=== PATIENT | male | born 1955 | race Caucasian/White ===

== ENCOUNTER 2019-12-02 21:34 | Inpatient (IN) | payer OTHER ==
[~2019-12-02] VITALS: Ht 170.2 cm; Wt 99.3 kg
--- NOTE | 2019-12-02 21:35 | NUR ---
PATIENTS AND DAUGHTER ARRIVED AND PATIENT AGREES TO RELEASE INFORMATION TO PATIENTS AND DAUGHTER.
[2019-12-02 21:36] VITALS: BP 163/90
[2019-12-02] MEDS ORDERED: NORVASC 2.5 MG2.5 M1 PO (21:56)
[2019-12-02] MEDS ORDERED: VITAMIN D22000 UNIT PO (21:56)
[2019-12-02] MEDS ORDERED: PREDNISONE 5 MG5 M1 PO (21:57)
[2019-12-02] MEDS ORDERED: PLAQUENIL200 MG PO (21:57)
[2019-12-02] MEDS ORDERED: FOLIC ACID1 MG PO (21:57)
[2019-12-02] MEDS ORDERED: METHOTREXATE 22.5 M1 PO (21:58)
[2019-12-02 22:05] LABS: ABSOLUTE BASOPHILS 0.1 thou/uL (0.0-0.2); ABSOLUTE EOSINOPHILS 0.4 thou/uL (0.0-0.7); ABSOLUTE LYMPHOCYTES 4.6 thou/uL (0.8-5.3); EOSINOPHILS 2.7 %; HEMATOCRIT 45.3 % (42.0-52.0); LYMPHOCYTES 30.3 %; MCH 32.4 pg (26.0-34.0); MCHC 33.2 g/dL (28.0-37.0); MCV 97.6 fL (80.0-100.0); MONOCYTES 6.7 %; MPV 8.8 fl. (7.2-11.1); NUCLEATED RBCS 0 /100WBC; PLATELET COUNT* 410 thou/uL (150-400); POLYS 59.3 %; RBC 4.64 mil/uL (4.50-6.00); RDW-CV 17.6 % (10.5-14.5); WBC 15.1 thou/uL (4.0-11.0)
[2019-12-02 22:23] LABS: CALCIUM 8.2 mg/dL (8.5-10.1); CREATININE 1.1 mg/dL (0.6-1.3)
[2019-12-02 22:28] LABS: TOTAL BILIRUBIN 0.3 mg/dL (<0.1-1.0); TOTAL PROTEIN 6.7 g/dL (6.4-8.2)
[2019-12-02 22:54] LABS: APTT 30.1 Seconds (25.0-31.3); PROTIME 10.7 Seconds (9.20-11.50)
[2019-12-03] VITALS (7 sets, daily range): BP systolic 104–144; BP diastolic 66–84
[2019-12-03 01:23] LABS: URINE BILIRUBIN NEGATIVE (Negative); URINE BLOOD 1+ (Negative); URINE CLARITY CLEAR; URINE COLOR YELLOW; URINE GLUCOSE-RANDOM NEGATIVE (Negative); URINE KETONES NEGATIVE (Negative); URINE LEUKOCYTES NEGATIVE (Negative); URINE NITRITE NEGATIVE (Negative); URINE PROTEIN NEGATIVE (Negative); URINE SPECIFIC GRAVITY <= 1.005 (1.005-1.030); URINE UROBILINOGEN 0.2 E.U./dl (0.2-1.0)
[2019-12-03 01:34] LABS: CASTS None Seen /LPF (None Seen); SQUAMOUS NONE SEEN /LPF (0-3); URINE WBC None Seen /HPF (0-5)
[2019-12-03 01:35] LABS: BACTERIA None Seen /HPF (None Seen); CRYSTALS None Seen /LPF (None Seen); URINE RBC 3-10 Few /HPF (0-2)
--- NOTE | 2019-12-03 02:05 | NUR ---
PATIENT ARRIVED ON UNIT AT 0130. MILD COMPLAINTS OF PAIN IN CHEST. STATES THT IT IS MOSTLY GONE NOW. ONLINE MARKETER COMPLETED DOCUMENTED. ALERT AND ORIENTED TIMES FOUR. SLEEPS IN RECLINER PER REQUEST. WILL CONTINUE TO MONITOR.
[2019-12-03 11:54] LABS: CHOLESTEROL 182 mg/dL (<200); HDL CHOLESTEROL 34 mg/dL (>40); LDL CHOLESTEROL 136 mg/dL (<100); SERUM ASSESSMENT CLEAR; TC:HDL 5.4 Ratio (Not establshd); TRIGLYCERIDE 64 mg/dL (<150); VLDL 13 mg/dL (<40)
[2019-12-04] VITALS (23 sets, daily range): BP systolic 99–140; BP diastolic 64–88
[2019-12-04 05:18] LABS: CALCIUM 8.4 mg/dL (8.5-10.1); CREATININE 1.2 mg/dL (0.6-1.3); POTASSIUM 4.1 mmol/L (3.5-5.1)
--- NOTE | 2019-12-04 05:33 | NUR ---
ASSUMED PATIENT CARE AT 1900. PATIENT ALERT AND ORIENTED TIMES FOUR. EDUCATED PATIENT ABOUT MEDICATIONS. PATIENT VERBALIZED UNDERSTANDING OF MEDICATIONS AND PROCEDURE THAT IS TO BE PERFORMED TODAY. UP AD ORESTES. NO COMPLAINTS OF PAIN OR DISCOMFORT NOTED. STEAM DRIER TENDER AND HOURLY ROUNDING COMPLETED DOCUMENTED.
--- NOTE | 2019-12-04 10:38 | EKG ---
[place] [address] ELECTROCARDIOGRAM REPORT Name: BROWN DEL TORO Room: [address] ADM IN M.R.#: [id number] Admission: 12/02/19 Attend Phys: Nick Voss, Discharge: Date of : 51 Report #: [id number] THIS REPORT FOR: //name// [facility] ED Test Date: 2019-12-02 Test Time: 21:39:04 Pat Name: BROWN DEL TORO Department: Room: [facility] Gender: M Mule Operator: : 1955 Requested By: Pamela Aldana Order Number: [id number] MD: Karthik Meng Measurements Intervals [place] Rate: 104 P: 51 TX: 186 QRS: 21 QRSD: 102 T: 30 QT: 380 QTc: 500 Interpretive Statements Sinus tachycardia Borderline prolonged QT interval No previous ECG available for comparison Electronically Signed On 12-04-2019 10:37:24 BRAND PROTECTION MANAGER by Karthik Meng [email or web address] <ELECTRONICALLY SIGNED> By: Karthik Meng MD, [facility] 12/04/19 [facility] 2139 2139 Karthik Meng MD, FACC /EPI
--- NOTE | 2019-12-04 11:19 | NUR ---
assumed pt care report received from nurse pt is aox4 on ra. o2 saturation 93%. vss. pt is scheduled for a cardiac cath this am. consent signed. asa and breathing treatment given. iv fluid started as ordered. pt denies chest pain, n/v. pt left for cardiac cath at 0915 am accompanied by heart cath nurses. pt came back from cardiac cath at 1030 am. vss being monitored q 15 min, neuro assessment performed as well. right radial area has blood around the radsatdt bracelet. but pt is not bleeding diretly from the artery site. r radial area cleaned with water and tissue. ekg done at bedside per laser technician. see chart. gown changed. heart monitor on. sr on telemetry monitor. no complaint. po medicine given. snack offered. lunch ordered, awaiting. at 1115 am 2 cm of air removed from radstadt pressure device. will continue to pull air out q30 min. family at bedside. call light at reach. will continue to monitor pt.
--- NOTE | 2019-12-04 14:14 | EKG ---
[place] [address] ELECTROCARDIOGRAM REPORT Name: BROWN DEL TORO Room: [address] ADM IN M.R.#: [id number] Admission: 12/02/19 Attend Phys: Nick Voss, Discharge: Date of : 51 Report #: [id number] THIS REPORT FOR: //name// [facility] Test Date: 2019-12-03 Test Time: 06:02:25 Pat Name: BROWN DEL TORO Department: Room: [address] Gender: M Dental Ceramist: RAKESH : 1955 Requested By: Nick Voss Order Number: [id number] Raymundo MD: Karthik Meng Measurements Intervals [place] Rate: 94 P: 51 MD: 177 QRS: 4 QRSD: 95 T: 32 QT: 370 QTc: 463 Interpretive Statements Sinus rhythm Compared to ECG 12/02/2019 21:39:04 Sinus tachycardia no longer present Electronically Signed On 12-04-2019 14:13:30 STRUCTURAL BIOLOGIST by Karthik Meng [email or web address] <ELECTRONICALLY SIGNED> By: Karthik Meng MD, [facility] 12/04/19 1413 D: [id number] 1 Karthik Meng MD, FACC /EPI
--- NOTE | 2019-12-04 14:17 | EKG ---
[place] [address] ELECTROCARDIOGRAM REPORT Name: BROWN DEL TORO Room: [address] ADM IN M.R.#: [id number] Admission: 12/02/19 Attend Phys: Nick Voss, Discharge: Date of : 51 Report #: [id number] THIS REPORT FOR: //name// [facility] Test Date: 2019-12-04 Test Time: 10:42:33 Pat Name: BROWN DEL TORO Department: Room: [address] Gender: M Wash Oil Pump Operator Helper: [facility] : 1955 Requested By: Karthik Meng Order Number: [id number] Raymundo MD: Karthik Meng Measurements Intervals [place] Rate: 88 P: 53 MD: 211 QRS: 11 QRSD: 100 T: 28 QT: 403 QTc: 488 Interpretive Statements Sinus rhythm Borderline prolonged QT interval Electronically Signed On 12-04-2019 14:16:54 PUBLIC UTILITIES SALES REPRESENTATIVE by Karthik Meng [email or web address] <ELECTRONICALLY SIGNED> By: Karthik Meng MD, [facility] 12/04/19 1416 1042 1042 Karthik Meng MD, FACC /EPI
--- NOTE | 2019-12-04 15:07 | NUR ---
Pt is A&O. Pt and are currently residing at home with their dtr, they are on the waiting list for an apartment. Independent. Pt uses a cane PRN. No hx of HH or SNF. Goal is home at tn. No needs anticipated.
--- NOTE | 2019-12-04 16:04 | CARD ---
[address] [address] CARDIAC CATH REPORT Name: BROWN DEL TORO Room: [address] IN M.R.#: [id number] Admission: 12/02/19 Attend Phys: Nick Voss, Discharge: Date of : 53 Report #: [id number] THIS REPORT FOR: //name// APPROVED REPORT Study performed: 12/04/2019 08:22:19 Patient Details Patient Status: In-Patient Room #: The patient is a 64 year-old male Event Personnel Karthik Meng Vehicle Modification Technician, Tianna Martinez RN Electric Motor Tester Assembler, Bela Ambrocio RTR Monitor, Matthew Hurtado RTR Scrub Procedures Performed Art Access - R radial artery, Left Heart Cath w/or w/o Coronaries, BRETT Place w/wo Plasty Single OM, Hemostasis with Hemoband Indication Unstable angina Risk Factors Hypercholesterolemia, Hypertension, Tobacco History () Admission/Lab Medications/Medications given during procedure Glycoprotein IllbIlla Inhibitors, Heparin Unfract., Nitroglycerin IA 400 mcg, Verapamil IA 5 mg, Heparin IV 6000 units, Aggrastat IV 10 mcg per kg per min, Plavix PO 600 mg Procedure Narrative The patient was brought electively to the Cardiac Catheterization Laboratory and was prepped and draped in a sterile manner. The right wrist was infiltrated with 2% Lidocaine subcutaneous anesthesia. A 6F Slender [place] sheath was inserted into the right radial artery. Coronary angiography was performed using coronary diagnostic catheters. The right coronary system was accessed and visualized with a 6F JR4 catheter. The left coronary system was accessed and visualized with a 6F JL4 catheter. The left ventricle was accessed and visualized with a 6F Pigtail catheter. Left ventricular/Aortic Valve gradient assessed via catheter pullback. Left ventriculogram was performed in PARKER projection. Closure device was deployed with a [address] [place] [address] CARDIAC CATH REPORT Name: BROWN DEL TORO Room: [address] IN ..#: [id number] Admission: 12/02/19 Attend Phys: Nick Voss, Discharge: Date of : 51 Report #: [id number] Fr Vasc-Band Reg 24cm. The patient tolerated the procedure well and there were no complications associated with the procedure. There was no hematoma. Intraoperative Conscious Sedation Sedation start time: 09:18 Case end Time: 10:05 Versed 2 mg Fluoro Time: 7.6 minutes Dose: DAP 043484 cGycm2 1755 mGy Contrast Type and Amount: Visipaque 125 ml Coronary Angiography The patient's coronary anatomy is right dominant. Diagnostic Cath Left Main 0% stenosis LAD 60% proximal stenosis Circumflex distally occluded and filled by collaterals from the right coronary artery OM3 80% proximal stenosis Right Coronary 40% proximal stenosis R PDA 70% ostial stenosis RPLV 60% proximal stenosis Left Ventriculography The left ventricular ejection fraction is estimated to be 60-65%. Left ventricular wall motion abnormalities are not present. There is no mitral insufficiency. Hemodynamics The aortic pressure is 114/80 mmHg with a mean of 95 mmHg. The left ventricular pressure is 114/8 mmHg with a mean of mmHg. The left ventricular end diastolic pressure is 14 mmHg. There was no gradient across the aortic valve upon pullback. Pullback from the left ventricle to the aorta revealed no gradient across the aortic valve. PCI Technique Lesion Anticoagulation was achieved with Heparin. bolus of iv aggrastat given Percutaneous coronary intervention was performed on the third obtuse marginal branch segment. The lesion stenosis prior to intervention was 80% with JOYCE 3 flow. A 6FR XB 3.5 100CM Guide Catheter was used to engage the lm ostium. A BMW 190cm Interventional Guidewire was used [place] [address] CARDIAC CATH REPORT Name: BROWN DEL TORO Room: [address] IN [facility]#: [id number] Admission: 12/02/19 Attend Phys: Nick Voss, Discharge: Date of : 51 Report #: [id number] BALLOON DILATION A Balloon catheter Trek RX 2.5 X 8 was inserted and inflated up to 16atm for 14seconds. Repeat angiography revealed the following post-dilatation results: 40% stenosis. Additional Inflation: 16atm for 6seconds. Additional Inflation: 16atm for 9seconds. Attempted to place a second BMW wire into the distal circumflex, but was unable to advance the wire suggesting this was a chronic occlusion STENT DEPLOYMENT A drug-eluting stent Kenan RX Stent 3.0X15mm was inserted and inflated up to 8atm for 13seconds. Repeat angiography revealed the following post-stent deployment results: 0% stenosis. Additional Inflation: 8atm for 8seconds. Additional Inflation: 12atm for 19seconds. Final angiography reveals 0 % stenosis with JOYCE 3 flow. Conclusion 1. CAD manifested by a 60% stenosis of the proximal lad, and a 70% stenosis of the distal posterior descending branch of the RCA 2. 80% stenosis of the third marginal branch of the circumflex which was distally occluded and filled by collaterals. 3. LVEF 60-65% 4. successful placement of a drug eluting stent in the 3rd marginal branch Recommendations Smoking Cessation Medications Administered Clopidogrel <ELECTRONICALLY SIGNED> By: Karthik Meng MD, [facility] 12/04/19 1603 1603 1603Davivinny Meng MD, FACC /INF
--- NOTE | 2019-12-04 18:56 | NUR ---
PT RIGHT RADIAL BRACELET TAKEN OUR BY NURSE AFTR PULLING ALL THE 10 CC OF AIR OUT. 4BY4 GAUZE APPLIED ON SITE. NO BLEEDING NOTICED. PT WENT FOR A WALK TOWARDS THE END OF THE SHIFT.
[2019-12-05] VITALS (8 sets, daily range): BP systolic 118–134; BP diastolic 67–74
--- NOTE | 2019-12-05 05:48 | NUR ---
ASSUMED PATIENT CARE AT 1900. PATIENT ALERT AND ORIENTEDTIMESFOUR. UP AD ORESTES. NO COMPLAINTS OF PAIN OR DISCOMFORT. DRESSING OT RIGHT WRIST C/D/I. CLEANING ATTENDANT AND HOURLY ROUNDING COMPLETED CHARTED.
[2019-12-05 06:06] LABS: HEMATOCRIT 41.5 % (42.0-52.0); HEMOGLOBIN 13.9 gm/dL (14.0-18.0); MCH 32.6 pg (26.0-34.0); MCHC 33.4 g/dL (28.0-37.0); MCV 97.8 fL (80.0-100.0); MPV 8.5 fl. (7.2-11.1); RBC 4.25 mil/uL (4.50-6.00); RDW-CV 17.7 % (10.5-14.5); WBC 12.5 thou/uL (4.0-11.0)
[2019-12-05 06:25] LABS: CALCIUM 8.1 mg/dL (8.5-10.1); POTASSIUM 4.1 mmol/L (3.5-5.1); TROPONIN-I LEVEL 0.24 ng/mL (<0.06)
[2019-12-05] MEDS ORDERED: PROAIR HFA8.5 GM INH (09:32)
[2019-12-05] MEDS ORDERED: CLOPIDOGREL75 MG PO (09:32)
[2019-12-05] MEDS ORDERED: NITROGLYCERIN0.4 MG SUBLING (09:32)
[2019-12-05] MEDS ORDERED: ASA81BEC PO (09:32)
[2019-12-05] MEDS ORDERED: NEXIUM40 MG PO (09:32)
[2019-12-05] MEDS ORDERED: LIPITOR 40 MG T40 M1 PO (09:32)
[2019-12-05] MEDS ORDERED: PROTONIX40 M2 PO (10:59)
--- NOTE | 2019-12-05 11:11 | EKG ---
[place] [address] ELECTROCARDIOGRAM REPORT Name: BROWN DEL TORO Room: [address] ADM IN M.R.#: [id number] Admission: 12/02/19 Attend Phys: Nick Voss, Discharge: Date of : 51 Report #: [id number] THIS REPORT FOR: //name// [facility] Test Date: 2019-12-05 Test Time: 08:03:01 Pat Name: BROWN DEL TORO Department: Room: [address] Gender: M Deliver Driver: : 1955 Requested By: Karthik Meng Order Number: [id number] Raymundo MD: Karthik Meng Measurements Intervals [place] Rate: 80 P: 50 VT: 193 QRS: 15 QRSD: 101 T: 26 QT: 410 QTc: 473 Interpretive Statements Sinus rhythm Compared to ECG 12/04/2019 10:42:33 No significant changes Electronically Signed On 12-05-2019 11:11:00 SAW SETTER by Karthik Meng [email or web address] <ELECTRONICALLY SIGNED> By: Karthik Meng MD, [facility] 12/05/19 1111 0803 2 Karthik Meng MD, FACC /EPI
--- NOTE | 2019-12-05 11:15 | NUR ---
assumed pt care report received from nurse. pt is aox4 on ra. up ad triny. vss. discharge ordered. f/u cardiology appointment given to pt. f/u cardiac rehab appointment set up with [facility] cardiac rehab department. pt denies pain. foot swollen. lower extremities elevated. romie hose placed on as ordered. and pt is instructed to place romie hose on daily. pt does not need a 1 week post hospital cardio appointment according to dr Meng nurse since pt did not have an mi. call light at reach. dc instruction given to pt. awaiting daughter to hand picker.
--- NOTE | 2019-12-05 11:52 | NUR ---
CARDIAC REHAB APPNT SET FOR 12/19/19. CARDIAC REHAB DID NOT HAVE ANY SPOT EARLIER THAN THAT. CARDIAC REHAB TOLD THIS NURSE THAT PULMONOLOGY REHAB WILL BE TAKEN CARE OF AFTER CARDIAC REHAB. THE ORDER WA REQUESTED TO BE SENT TO CARDIAC REHAB. THIS NURSE WROTE ORDER IN CHART. SEE CHART AND FAXED IT TO CARDIAC REHAB.
--- NOTE | 2019-12-05 11:53 | NUR ---
PT LEFT FLOOR AT 1150 ACCOMPANIED BY VOLUNTEER, , AND DAUGHTER WITH WHEELCHAIR
--- NOTE | 2019-12-06 13:13 | CON ---
[address] [address] CONSULTATION Name: BROWN DEL TORO Room: [address] IN M.R.#: [id number] Admission: 12/02/19 Attend Phys: Nick Voss, Discharge: 12/05/19 Date of : 51 Report #: [id number] THIS REPORT FOR: //name// CC: LULY physician/PCP Nick Voss DATE OF SERVICE: 12/03/2019 CARDIOLOGY CONSULTATION HISTORY OF PRESENT ILLNESS: The patient is a 64-year-old male who developed left anterior chest discomfort, which is described as a pressure, achy sensation, which radiated down into the left arm. It lasted for at least an hour and he ultimately sought assistance in the [facility] Emergency Room. He received aspirin, which provided no relief and sublingual nitroglycerin to relieve the discomfort. There has been no recurrences since that time. He noted mild diaphoresis, but no nausea, vomiting, lightheadedness, dizziness, or syncope. He denies similar episodes in the past. Risk factors include hypertension and prolonged tobacco use estimated at 1 pack per day of late. He denies family history of premature coronary artery disease or renal insufficiency. He has apparently had a history of borderline diabetes. PAST MEDICAL HISTORY: Remarkable for rheumatoid arthritis and peripheral venous insufficiency with swelling of the feet bilaterally. PAST SURGICAL HISTORY: He has had prior back surgery, appendectomy, and splenectomy. SOCIAL HISTORY: He is a smoker, who smokes 1 pack per day and is . FAMILY HISTORY: Negative for premature coronary artery disease or sudden . REVIEW OF SYSTEMS: Remarkable for the following: GENERAL: He notes some weakness. RESPIRATORY: He notes a cough and some dyspnea on exertion. CARDIAC: He presented with chest discomfort and has noted palpitations. MUSCULOSKELETAL: He notes chronic arthritic complaints in the context of rheumatoid arthritis. Remainder of the 13-point review of systems is unremarkable. MEDICATIONS: Include amlodipine, vitamin D, hydroxychloroquine, methotrexate, [place] [address] CONSULTATION Name: BROWN DEL TORO Room: [address] IN M.R.#: [id number] Admission: 12/02/19 Attend Phys: Nick Voss, Discharge: 12/05/19 Date of : 51 Report #: [id number] PHYSICAL EXAMINATION: GENERAL: Reveals a moderately overweight, middle-aged male. VITAL SIGNS: Blood pressure is 110/70, pulse rate is 84, respirations are 18 per minute. NECK: Jugular venous pressure is normal. Carotids are 1 to 2+. CHEST: Reveals slightly decreased breath sounds diffusely with occasional rhonchi. No wheezes are noted. CARDIAC: Reveals normal sinus rhythm throughout with a soft systolic murmur. ABDOMEN: Moderately obese and nontender. EXTREMITIES: Reveal 1 to 2+ bilateral ankle edema and are well perfused. There are no deforming arthritic changes. There is no erythema or anything to suggest cellulitis of the lower extremities. EKGs revealed sinus rhythm and unremarkable. LABORATORY DATA: Reveals hemoglobin 15.0, white blood cell count of 15,100 with 410,000 platelets. Sodium 141, potassium 4.0, BUN 14, and creatinine 1.1. Troponin I sequentially less than 0.06. NT-BNP 82. Albumin 3.0, glucose 157 mg percent. IMPRESSION: 1. Left chest pain with achiness in the left arm. 2. Hypertension. 3. Tobacco habituation. 4. Weight excess. 5. Rheumatoid arthritis. RECOMMENDATIONS: Given the characterization of the pain and the response to nitrates with the risk factor profile, I would recommend proceeding with elective cardiac catheterization on 12/04/2019. Thank you for allowing us to see the patient in cardiovascular assessment. <ELECTRONICALLY SIGNED> By: Clint Miramontes MD, FACC 12/06/19 1313 1041 1105Clint Miramontes MD, FACC /nt
== END 2019-12-05 11:46 | disposition home or self-care (01) | DRG 246 ==
LOC: M.ERS 21:34 → M.TBA-ER 23:56 → M.2W 23:56
PROVIDERS: Internal Medicine; Internal Medicine Cardiovascular Disease; Personal Emergency Response Attendant; ADMIT Family Medicine
PROC: 027034Z Dilation of Coronary Artery, One Artery with Drug-eluting Intraluminal Device, Percutaneous Approach (ICD-10-PCS; principal; 2019-12-04)
PROC: B211YZZ Fluoroscopy of Multiple Coronary Arteries using Other Contrast (ICD-10-PCS; 2019-12-04)
PROC: 4A023N7 Measurement of Cardiac Sampling and Pressure, Left Heart, Percutaneous Approach (ICD-10-PCS; 2019-12-04)
PROC: B215YZZ Fluoroscopy of Left Heart using Other Contrast (ICD-10-PCS; 2019-12-04)
DX: I25.110 Atherosclerotic heart disease of native coronary artery with unstable angina pectoris (principal); I50.31 Acute diastolic (congestive) heart failure; E44.1 Mild protein-calorie malnutrition; J84.9 Interstitial pulmonary disease, unspecified; E78.5 Hyperlipidemia, unspecified; I11.0 Hypertensive heart disease with heart failure; I87.2 Venous insufficiency (chronic) (peripheral); F17.210 Nicotine dependence, cigarettes, uncomplicated; M06.9 Rheumatoid arthritis, unspecified; J84.10 Pulmonary fibrosis, unspecified; I27.20 Pulmonary hypertension, unspecified; J44.9 Chronic obstructive pulmonary disease, unspecified; Z79.899 Other long term (current) drug therapy; Z90.49 Acquired absence of other specified parts of digestive tract; Z68.34 Body mass index [BMI] 34.0-34.9, adult; Z85.89 Personal history of malignant neoplasm of other organs and systems

== ENCOUNTER → 2020-04-11 | Outpatient (CLI) | payer OTHER ==
[~2020-04-11] MED LIST: ASA81BEC PO; CLOPIDOGREL75 MG PO; FOLIC ACID1 MG PO; LIPITOR 40 MG T40 M1 PO; METHOTREXATE 22.5 M1 PO; NEXIUM40 MG PO; NITROGLYCERIN0.4 MG SUBLING; NORVASC 2.5 MG2.5 M1 PO; PLAQUENIL200 MG PO; PREDNISONE 5 MG5 M1 PO; PROAIR HFA8.5 GM INH; PROTONIX40 M2 PO; VITAMIN D22000 UNIT PO
[2020-04-11 10:54] LABS: CREATININE 1.1 mg/dL (0.6-1.3)
== END ==
LOC: M.LAB 10:26 → M.CT 11:30
PROVIDERS: Surgery
DX: I77.811 Abdominal aortic ectasia (principal)

== ENCOUNTER 2020-04-19 14:23 | Emergency (ER) | payer OTHER ==
[~2020-04-19] VITALS: Ht 180.3 cm; Wt 99.8 kg
[2020-04-19 15:30] LABS: ABSOLUTE BASOPHILS 0.1 thou/uL (0.0-0.2); ABSOLUTE MONOCYTES 1.4 thou/uL (0.0-1.2); ABSOLUTE NEUTROPHILS 6.5 thou/uL (1.6-8.1); BASOPHILS 0.5 %; EOSINOPHILS 7.5 %; HEMATOCRIT 41.8 % (42.0-52.0); LYMPHOCYTES 30.7 %; MCH 39.3 pg (26.0-34.0); MCHC 33.5 g/dL (28.0-37.0); MCV 117.2 fL (80.0-100.0); MONOCYTES 10.9 %; MPV 8.9 fl. (7.2-11.1); NUCLEATED RBCS 1 /100WBC; PLATELET COUNT* 355 thou/uL (150-400); POLYS 50.4 %; RBC 3.57 mil/uL (4.50-6.00); RDW-CV 17.9 % (10.5-14.5); WBC 12.9 thou/uL (4.0-11.0)
[2020-04-19 15:35] LABS: CALCIUM 7.9 mg/dL (8.5-10.1); CREATININE 0.9 mg/dL (0.6-1.3); POTASSIUM 3.8 mmol/L (3.5-5.1)
[2020-04-19 15:40] LABS: ALBUMIN 2.7 g/dL (3.4-5.0); TOTAL BILIRUBIN 0.2 mg/dL (<0.1-1.0); TOTAL PROTEIN 6.8 g/dL (6.4-8.2)
[2020-04-19 15:50] LABS: ANISOCYTOSIS 2+; MACROCYTES 2+; PLATELET ESTIMATE ADEQUATE
[2020-04-19 15:51] VITALS: BP 132/70
== END 2020-04-19 15:52 | disposition home or self-care (01) ==
LOC: M.ERS 14:23
PROVIDERS: Physician Assistant
DX: I73.89 Other specified peripheral vascular diseases (principal); M79.662 Pain in left lower leg; M79.661 Pain in right lower leg; Z90.89 Acquired absence of other organs; Z90.81 Acquired absence of spleen

== ENCOUNTER → 2020-05-10 | Outpatient (CLI) | payer OTHER ==
[2020-05-10 12:08] LABS: HEMATOCRIT 40.2 % (42.0-52.0); HEMOGLOBIN 13.5 gm/dL (14.0-18.0)
[2020-05-10 12:17] LABS: CREATININE 0.8 mg/dL (0.6-1.3)
== END ==
LOC: M.LAB 11:43
PROVIDERS: ATTEND Surgery
DX: Z01.812 Encounter for preprocedural laboratory examination (principal); I70.223 Atherosclerosis of native arteries of extremities with rest pain, bilateral legs

== ENCOUNTER → 2020-06-21 | Outpatient (CLI) | payer OTHER | LOC: M.ULTRA 13:17 | PROVIDERS: ATTEND Nurse Practitioner | DX: M79.604 Pain in right leg (principal); R60.0 Localized edema ==

== ENCOUNTER → 2020-07-15 | Outpatient (CLI) | payer OTHER ==
[2020-07-15 11:50] LABS: HEMATOCRIT 39.7 % (42.0-52.0); HEMOGLOBIN 13.6 gm/dL (14.0-18.0)
[2020-07-15 11:59] LABS: CREATININE 1.1 mg/dL (0.6-1.3)
== END ==
LOC: M.LAB 11:29
PROVIDERS: ATTEND Surgery
DX: I70.223 Atherosclerosis of native arteries of extremities with rest pain, bilateral legs (principal)

== ENCOUNTER 2021-01-04 13:51 | Emergency (ER) | payer MEDICARE, OTHER ==
[~2021-01-04] VITALS: Ht 172.7 cm; Wt 109.3 kg
[2021-01-04] MEDS ORDERED: LISINOPRIL5 MG PO (14:04)
[2021-01-04 14:40] LABS: ABSOLUTE BASOPHILS 0.1 thou/uL (0.0-0.2); ABSOLUTE EOSINOPHILS 0.4 thou/uL (0.0-0.7); ABSOLUTE LYMPHOCYTES 4.2 thou/uL (0.8-5.3); ABSOLUTE MONOCYTES 1.9 thou/uL (0.0-1.2); ABSOLUTE NEUTROPHILS 5.4 thou/uL (1.6-8.1); BASOPHILS 0.9 %; EOSINOPHILS 3.1 %; HEMATOCRIT 45.5 % (42.0-52.0); HEMOGLOBIN 14.9 gm/dL (14.0-18.0); LYMPHOCYTES 35.1 %; MCHC 32.7 g/dL (28.0-37.0); MCV 113.3 fL (80.0-100.0); MONOCYTES 16.1 %; MPV 8.6 fl. (7.2-11.1); NUCLEATED RBCS 0 /100WBC; PLATELET COUNT* 307 thou/uL (150-400); POLYS 44.8 %; RBC 4.02 mil/uL (4.50-6.00); RDW-CV 16.2 % (10.5-14.5); WBC 12.1 thou/uL (4.0-11.0)
[2021-01-04 14:55] LABS: CALCIUM 8.4 mg/dL (8.5-10.1); CREATININE 0.8 mg/dL (0.6-1.3); POTASSIUM 4.6 mmol/L (3.5-5.1)
[2021-01-04 15:04] LABS: PLATELET ESTIMATE ADEQUATE
[2021-01-04 15:05] LABS: ANISOCYTOSIS 2+; POIKILOCYTOSIS 2+
[2021-01-04 15:07] LABS: ALBUMIN 2.2 g/dL (3.4-5.0); TOTAL BILIRUBIN 0.7 mg/dL (<0.1-1.0); TOTAL PROTEIN 5.9 g/dL (6.4-8.2)
[2021-01-04 16:30] LABS: URINE BILIRUBIN NEGATIVE (Negative); URINE BLOOD 1+ (Negative); URINE COLOR YELLOW; URINE GLUCOSE-RANDOM NEGATIVE (Negative); URINE KETONES NEGATIVE (Negative); URINE LEUKOCYTES-REFLEX NEGATIVE (Negative); URINE NITRITE-REFLEX NEGATIVE (Negative); URINE PROTEIN NEGATIVE (Negative)
[2021-01-04 16:32] LABS: URINE CLARITY HAZY
[2021-01-04 16:36] LABS: SQUAMOUS 0-3 Few /LPF (0-3)
[2021-01-04] MEDS ORDERED: KEFLEX500 M1 PO (16:36)
[2021-01-04 16:37] LABS: BACTERIA-REFLEX None Seen /HPF (None Seen); CRYSTALS None Seen /LPF (None Seen); HYALINE CASTS 0-3 Few /LPF (None Seen); MUCUS 0-3 Light strn/LPF (None Seen); URINE RBC 3-10 Few /HPF (0-2); URINE WBC-REFLEX 0-5 Rare /HPF (0-5)
[2021-01-04] MEDS ORDERED: TRIAMCINOLONE430 GM TOP (16:40)
[2021-01-04] MEDS ORDERED: KRISTALOSE20 GM PO (16:41)
[2021-01-04] MEDS ORDERED: CITRATE OF MAG296 M1 PO (16:41)
[2021-01-04 17:00] VITALS: BP 115/78
--- NOTE | 2021-01-06 13:44 | EKG ---
[place] [address] ELECTROCARDIOGRAM REPORT Name: BROWN DEL TORO JR Room: [facility]#: [id number] Admission: 01/04/21 Attend Phys: Discharge: 01/04/21 Date of : 51 Date of Service: 01/04/21 1418 Report #: [id number] THIS REPORT FOR: //name// [facility] ED Test Date: 2021-01-04 Test Time: 14:18:10 Pat Name: BROWN DEL TORO Department: Room: Gender: Test Borer Helper: 14 : 1955 Requested By: Berenice Brunner Order Number: [id number] MD: Cilnt Miramontes Measurements Intervals [place] Rate: 89 P: 38 ND: 189 QRS: 12 QRSD: 101 T: 30 QT: 414 QTc: 504 Interpretive Statements Sinus rhythm Low voltage, precordial leads Prolonged QT interval Compared to ECG 12/05/2019 08:03:01 Low QRS voltage now present Prolonged QT interval now present Electronically Signed On 01-06-2021 13:44:31 MARIONETTE PERFORMER by Clint Miramontes [email or web address] <ELECTRONICALLY SIGNED> By: Clint Miramontes MD, [facility] 01/06/21 1344 1418 1418 Clint Miramontes MD, [facility] /EPI
== END 2021-01-04 17:00 | disposition home or self-care (01) ==
LOC: M.ERS 13:51
PROVIDERS: Physician Assistant
DX: K59.00 Constipation, unspecified (principal); R33.9 Retention of urine, unspecified; L03.116 Cellulitis of left lower limb; L03.115 Cellulitis of right lower limb; I45.81 Long QT syndrome; M06.9 Rheumatoid arthritis, unspecified; Z90.49 Acquired absence of other specified parts of digestive tract; Z90.89 Acquired absence of other organs

== ENCOUNTER 2021-01-15 18:53 | Inpatient (IN) | payer OTHER ==
[~2021-01-15] VITALS: Ht 170.2 cm; Wt 115.7 kg
[~2021-01-15 18:53] MED LIST changes: +CITRATE OF MAG296 M1 PO; +KEFLEX500 M1 PO; +KRISTALOSE20 GM PO; +LISINOPRIL5 MG PO; +TRIAMCINOLONE430 GM TOP
[2021-01-15 19:03] VITALS: BP 102/44
[2021-01-15 19:31] LABS: ABSOLUTE EOSINOPHILS 0.4 thou/uL (0.0-0.7); ABSOLUTE LYMPHOCYTES 3.2 thou/uL (0.8-5.3); ABSOLUTE MONOCYTES 1.8 thou/uL (0.0-1.2); ABSOLUTE NEUTROPHILS 5.2 thou/uL (1.6-8.1); BASOPHILS 0.2 %; EOSINOPHILS 3.6 %; HEMATOCRIT 41.5 % (42.0-52.0); LYMPHOCYTES 30.5 %; MCH 37.4 pg (26.0-34.0); MCHC 33.7 g/dL (28.0-37.0); MONOCYTES 17.1 %; MPV 8.7 fl. (7.2-11.1); NUCLEATED RBCS 0 /100WBC; PLATELET COUNT* 324 thou/uL (150-400); POLYS 48.6 %; RBC 3.74 mil/uL (4.50-6.00); RDW-CV 15.8 % (10.5-14.5); WBC 10.6 thou/uL (4.0-11.0)
[2021-01-15 19:44] LABS: INR 1.1; PROTIME 11.9 Seconds (9.20-11.50)
[2021-01-15 19:57] LABS: CALCIUM 8.5 mg/dL (8.5-10.1); POTASSIUM 3.6 mmol/L (3.5-5.1)
[2021-01-15 20:02] LABS: TOTAL BILIRUBIN 0.7 mg/dL (<0.1-1.0); TOTAL PROTEIN 5.8 g/dL (6.4-8.2)
[2021-01-15 20:52] LABS: ANISOCYTOSIS Occasional; MACROCYTES 2+; PLATELET ESTIMATE ADEQUATE
[2021-01-15 22:30] VITALS: BP 106/52
[2021-01-15 23:07] VITALS: BP 116/57
[2021-01-16 04:00] VITALS: BP 95/50
[2021-01-16 08:16] VITALS: BP 105/60
[2021-01-16 12:31] VITALS: BP 110/47
--- NOTE | 2021-01-16 16:25 | 2DMMODE ---
[place] [address] 2 D/M-MODE ECHOCARDIOGRAM Name: ALVERTOBROWN JR Room: [address] IN [facility]#: [id number] Admission: 01/15/21 Attend Phys: Mando Servin, Discharge: Date of : 51 Date of Service: 01/16/21 1624 Report #: [id number] THIS REPORT FOR: cc: Matthew Lomeli Adam J DO Liston, Michael J. MD [facility] ~ APPROVED REPORT Study performed: 01/16/2021 14:42:29 EXAM: Comprehensive 2D, Doppler, and color-flow Echocardiogram Patient Location: In-Patient Room #: [facility] Status: routine BSA: 2.24 HR: 95 bpm BP: 110/47 mmHg Rhythm: NSR Other Information Study Quality: Good Indications FLUID OVERLOAD 2D Dimensions IVSd: 13.36 (7-11mm) LVOT Diam: 23.68 (18-24mm) LVDd: 42.52 mm PWd: 13.18 (7-11mm) Ascending Ao: 35.85 (22-36mm) LVDs: 24.78 (25-40mm) Aortic Root: 37.64 mm Volumes Left Atrial Volume (Systole) LA ESV Index: 22.10 mL/m2 Aortic Valve AoV Peak Agus.: 1.75 m/s AO Peak Gr.: 12.22 mmHg LVOT Max P.04 mmHg AO Mean Gr.: 6.89 mmHg LVOT Mean P.42 mmHg LVOT Max V: 1.42 m/s AO V2 VTI: 31.71 cm LVOT Mean V: 0.83 m/s ALBIN (VTI): 3.59 cm2 LVOT V1 VTI: 25.86 [place] [address] 2 D/M-MODE ECHOCARDIOGRAM Name: BROWN DEL TORO Room: [address]#: [id number] Admission: 01/15/21 Attend Phys: Mando Servin, Discharge: Date of : 51 Date of Service: 01/16/21 1624 Report #: [id number] Mitral Valve E/A Ratio: 0.91 MV Decel. Time: 252.35 ms MV E Max Agus.: 1.04 m/s MV PHT: 73.18 ms MVA (PHT): 3.01 cm2 TDI E/Lateral E': 8.00 E/Medial E': 8.67 Medial E' Agus.: 0.12 m/s Lateral E' Agus.: 0.13 m/s Pulmonary Valve PV Peak Agus.: 1.08 m/s PV Peak Gr.: 4.65 mmHg Left Ventricle The left ventricle is normal size. There is normal LV segmental wall motion. There is normal left ventricular wall thickness. Left ventricular systolic function is normal. LVEF is 60-65%. Grade I - abnormal relaxation pattern. Right Ventricle The right ventricle is normal size. The right ventricular systolic function is normal. Atria Left atrium is mildly dilated. The right atrium size is normal. Aortic Valve Mild aortic valve sclerosis. No aortic regurgitation is present. There is no aortic valvular stenosis. Mitral Valve There is mitral annular calcification. Trace mitral regurgitation. No evidence of mitral valve stenosis. Tricuspid Valve The tricuspid valve is normal in structure. Unable to assess PA pressure. Trace tricuspid regurgitation. Pulmonic Valve The pulmonary valve is normal in structure. There is no pulmonic valvular regurgitation[place] [address] 2 D/M-MODE ECHOCARDIOGRAM Name: BROWN DEL TORO JR Room: [address]#: [id number] Admission: 01/15/21 Attend Phys: Mando Servin, Discharge: Date of : 51 Date of Service: 01/16/21 1624 Report #: [id number] The aortic root is normal in size. IVC is not well visualized. Pericardium There is no pericardial effusion. <Conclusion> The left ventricle is normal size. There is normal left ventricular wall thickness. Left ventricular systolic function is normal. LVEF is 60-65%. Grade I - abnormal relaxation pattern. Left atrium is mildly dilated. Mild aortic valve sclerosis. There is no aortic valvular stenosis. There is mitral annular calcification. Trace mitral regurgitation. <ELECTRONICALLY SIGNED> By: Abhishek Hogue MD, FACC 01/16/21 1624 1624 1624 Abhishek Hogue MD, FACC /INF
--- NOTE | 2021-01-16 19:21 | CON ---
[address] [address] CONSULTATION Name: BROWN DEL TORO JR Room: [address] IN M.R.#: [id number] Admission: 01/15/21 Attend Phys: Mando Servin MD Discharge: Date of : 51 Report #: [id number] THIS REPORT FOR: cc: Matthew Lomeli Adam J DO ~ Pervez, Adeel MD DATE OF SERVICE: 01/16/2021 CONSULT REQUESTED BY: Marek Cherry MD INDICATION FOR CONSULTATION: COVID-19. HISTORY OF PRESENT ILLNESS: A 65-year-old gentleman with past medical history as mentioned below. This does include a history of rheumatoid arthritis and the patient does take methotrexate as well as hydroxychloroquine long-term and therefore he does have chronic immune suppression. The patient also has an extensive history of smoking, discontinued about a year ago. He previously has not been diagnosed with a cardiac or respiratory disease. The patient, however, stated that for a long period of time, more than a year or possibly longer he has had significant swelling of lower extremities. He says that this has worsened recently. He also states that he started having redness over the last few weeks in lower extremities and these were nonpainful. He therefore did seek treatment with his primary care physician and he was on cephalexin for 10 days. He just finished it yesterday. The patient, however, reports no improvement in his symptoms of lower extremities as a result of taking cephalexin for 10 days and therefore eventually got admitted here. He has significant erythema, swelling as well as blistering in the lower extremities. He initially told me that he has no shortness of breath when I asked him directly though it does appear to me that he has some shortness of breath on exertion, but he may not be fully aware of this. It is possible this had been there and unchanged for a long period of time. There is no cough. There is no sputum production. There is no chest pain. He denies any upper respiratory complaints. The patient has been febrile with a temperature up to 38.2 earlier today. The patient, however, does not appear to be aware that he has had a fever. He does not report any chills. REVIEW OF SYSTEMS: Negative except as mentioned above. PAST MEDICAL HISTORY: Rheumatoid arthritis status post splenectomy, appendectomy, tonsillectomy, hernia repair, tumor removal [place] [address] CONSULTATION Name: ALVERTOBROWN Castillo Room: [address]#: [id number] Admission: 01/15/21 Attend Phys: Mando Servin MD Discharge: Date of : 51 Report #: [id number] SOCIAL HISTORY: He has an extensive history of smoking for several decades, discontinued about 1 year ago. No known history of heavy alcohol use or illegal drug use. CURRENT MEDICATIONS: List in [facility] reviewed. HOME MEDICATIONS: List also in [facility] reviewed. ALLERGIES: No known drug allergies. FAMILY HISTORY: There is no pertinent known family history at this time. PHYSICAL EXAMINATION: GENERAL: Alert, awake and oriented, does not appear to be in any distress at this time. VITAL SIGNS: Has a pulse between 90-100, blood pressure 110/47, has been running on the lower side. He had a fever of 38.2 earlier today. His temperature is 37.1 now. Body mass index elevated to 40. HEENT: Head is normocephalic and atraumatic. Mucous membranes are moist. He appears to have a narrow airway. NECK: Does not show raised JVP, asymmetry, mass or lymph nodes. CHEST: Symmetrical expansion on inspection and palpation. On auscultation, chest is clear. HEART: Regular. There is no murmur. ABDOMEN: Mildly distended, nontender. EXTREMITIES: Lower extremities show 3+ edema bilaterally. There is erythema of bilateral lower extremities. There is blistering noted in lower extremities, more on the right side. He does have calf tenderness bilaterally. SKIN: Weepy and erythematous. NEUROLOGICAL: Moves all extremities bilaterally equally and spontaneously with no focal deficit identified. IMAGING: The patient's chest x-ray from last night was reviewed and compared with the patient's previous chest x-rays. In summary, there are some chronic changes, which may be pleural plaques on the right side. These are old. There is a small infiltrate in the left lower lobe, which appears to be new compared with the patient's previous imaging. The patient's lab work is in [facility] and this is also reviewed and note that he is COVID-19 positive by antigen. His D-dimer is elevated to 3.58. ASSESSMENT AND PLAN: 1. COVID-19. We will watch his respiratory status and oxygen saturation closely. Considering that he is immune suppression and currently not on oxygen the patient is a potential candidate for the use of a Regeneron [place] [address] CONSULTATION Name: BROWN DEL TORO JR Room: [address] IN M.R.#: [id number] Admission: 01/15/21 Attend Phys: Mando Servin MD Discharge: Date of : 51 Report #: [id number] COVID-19 antibodies. I would defer to the ID service who has been consulted as to whether this is considered. Also I would defer at this time to the ID service regarding whether remdesivir is considered. If the patient does drop O2 saturation then I would favor starting the remdesivir,.also for now, I did not order dexamethasone, but if there is any worsening in his respiratory status, I would have a very low threshold of starting dexamethasone at 6 mg a day. 2. Pulmonary infiltrates. In summary, the findings on the right lung are old and likely represent chronic changes. There is a small infiltrate in the left lower lobe, which to me appears to be new. Regardless, it does appear that the patient would need antibiotics for cellulitis. I will defer choice of antibiotics to the ID service. The patient does meet criteria for a CT chest for screening for lung cancer, so we will at some point plan to do a CT chest. 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 3. Pain/erythema of lower extremity/edema of lower extremities, recommend venous Dopplers. Recommend also obtaining a 2D echo. 4. Cellulitis of the lower extremities. Note that he has just come off cephalexin for 10 days yesterday, which has not lead to improvement in cellulitis. At this time ID service is on the case and I would therefore defer to ID regarding choice of antibiotics. Vancomycin and Levaquin could be one of several regimens that could potentially be used. We already have a nasal swab for methicillin-resistant Staphylococcus aureus pending at this time. 5. Elevated D-dimer. Certainly, this could be from cellulitis. The venous Dopplers and echo are pending. I held off on a CTA chest for now. 6. Fluid overload. I feel that he is total body fluid overloaded despite the fact that he does not appear to have a right atrial dilatation and the proBNP is normal. His blood pressure is on the lower side. I went ahead and discontinued his lisinopril. If the blood pressure improves, then I will consider diuresing him. 7. History of smoking/possible underlying chronic obstructive pulmonary disease. He is on p.r.n. albuterol. We will consider nebulized bronchodilators in case his respiratory status worsens. 8. Obesity/suspected obstructive sleep apnea, again if his respiratory status is to worsen, I would consider a BiPAP while asleep. 9. Deep vein thrombosis prophylaxis. Currently, he is on Lovenox. Thanks for this consultation. <ELECTRONICALLY SIGNED> By: Dion Kumar MD 01/16/21 1921 1341 1549Aaris Kumar MD /nt
[2021-01-16 20:00] VITALS: BP 109/60
[2021-01-17] VITALS: BP 120/55
[2021-01-17 04:00] VITALS: BP 111/60
[2021-01-17 05:24] LABS: ABSOLUTE BASOPHILS 0.1 thou/uL (0.0-0.2); ABSOLUTE EOSINOPHILS 0.8 thou/uL (0.0-0.7); ABSOLUTE LYMPHOCYTES 3.5 thou/uL (0.8-5.3); ABSOLUTE MONOCYTES 1.8 thou/uL (0.0-1.2); ABSOLUTE NEUTROPHILS 3.9 thou/uL (1.6-8.1); HEMATOCRIT 37.3 % (42.0-52.0); HEMOGLOBIN 12.3 gm/dL (14.0-18.0); LYMPHOCYTES 34.3 %; MCH 36.9 pg (26.0-34.0); MCV 111.9 fL (80.0-100.0); MPV 8.2 fl. (7.2-11.1); NUCLEATED RBCS 0 /100WBC; PLATELET COUNT* 299 thou/uL (150-400); POLYS 38.7 %; RBC 3.33 mil/uL (4.50-6.00); RDW-CV 15.9 % (10.5-14.5); WBC 10.2 thou/uL (4.0-11.0)
[2021-01-17 05:43] LABS: ALBUMIN 1.7 g/dL (3.4-5.0); CALCIUM 7.6 mg/dL (8.5-10.1); CREATININE 0.8 mg/dL (0.6-1.3); MAGNESIUM 1.9 mg/dL (1.8-2.4); POTASSIUM 4.3 mmol/L (3.5-5.1); TOTAL BILIRUBIN 0.7 mg/dL (<0.1-1.0); TOTAL PROTEIN 4.9 g/dL (6.4-8.2)
[2021-01-17 06:26] LABS: MACROCYTES 1+
[2021-01-17 06:27] LABS: ANISOCYTOSIS 2+; PLATELET ESTIMATE ADEQUATE
[2021-01-17 12:24] VITALS: BP 135/68
[2021-01-17 17:18] VITALS: BP 148/75
[2021-01-17 20:00] VITALS: BP 115/56
[2021-01-18] VITALS (7 sets, daily range): BP systolic 115–128; BP diastolic 62–78
[2021-01-18 08:24] LABS: ALBUMIN 1.8 g/dL (3.4-5.0); CALCIUM 8.1 mg/dL (8.5-10.1); CREATININE 0.9 mg/dL (0.6-1.3); PHOSPHORUS* 3.7 mg/dL (2.5-4.9); POTASSIUM 3.8 mmol/L (3.5-5.1); TOTAL BILIRUBIN 0.7 mg/dL (<0.1-1.0); TOTAL PROTEIN 5.3 g/dL (6.4-8.2)
[2021-01-18 08:29] LABS: ABSOLUTE BASOPHILS 0.1 thou/uL (0.0-0.2); ABSOLUTE EOSINOPHILS 0.8 thou/uL (0.0-0.7); ABSOLUTE MONOCYTES 1.8 thou/uL (0.0-1.2); ABSOLUTE NEUTROPHILS 4.3 thou/uL (1.6-8.1); BASOPHILS 1.4 %; EOSINOPHILS 7.7 %; HEMATOCRIT 38.5 % (42.0-52.0); HEMOGLOBIN 12.7 gm/dL (14.0-18.0); MCH 36.5 pg (26.0-34.0); MCV 110.7 fL (80.0-100.0); MONOCYTES 18.2 %; MPV 8.5 fl. (7.2-11.1); NUCLEATED RBCS 0 /100WBC; PLATELET COUNT* 303 thou/uL (150-400); POLYS 42.7 %; RBC 3.47 mil/uL (4.50-6.00); RDW-CV 15.9 % (10.5-14.5); WBC 10.1 thou/uL (4.0-11.0)
[2021-01-18 09:33] LABS: BURR CELLS 1+; MACROCYTES 2+; PLATELET ESTIMATE ADEQUATE; TARGET CELLS Occasional
[2021-01-19 03:56] VITALS: BP 120/68
[2021-01-19 09:00] VITALS: BP 118/57
[2021-01-19 10:59] VITALS: BP 117/67
[2021-01-19 16:01] VITALS: BP 136/64
[2021-01-19 20:00] VITALS: BP 102/43
[2021-01-20] VITALS (7 sets, daily range): BP systolic 112–120; BP diastolic 49–66
[2021-01-20] MEDS ORDERED: AMOXIL 875 MG875 M1 PO (09:10)
[2021-01-20 09:42] LABS: HEMATOCRIT 38.9 % (42.0-52.0); MCH 37.1 pg (26.0-34.0); MCHC 33.5 g/dL (28.0-37.0); MCV 110.6 fL (80.0-100.0); MPV 8.1 fl. (7.2-11.1); NUCLEATED RBCS 0 /100WBC; PLATELET COUNT* 314 thou/uL (150-400); RBC 3.51 mil/uL (4.50-6.00); RDW-CV 15.4 % (10.5-14.5); WBC 9.7 thou/uL (4.0-11.0)
[2021-01-20 09:52] LABS: ALBUMIN 1.7 g/dL (3.4-5.0); CALCIUM 7.9 mg/dL (8.5-10.1); CREATININE 0.9 mg/dL (0.6-1.3); POTASSIUM 3.6 mmol/L (3.5-5.1); TOTAL BILIRUBIN 0.6 mg/dL (<0.1-1.0); TOTAL PROTEIN 5.3 g/dL (6.4-8.2)
[2021-01-20 10:05] LABS: ABSOLUTE EOSINOPHILS 0.4 thou/uL (0.0-0.7); ABSOLUTE MONOCYTES 1.9 thou/uL (0.0-1.2); ABSOLUTE NEUTROPHILS 5.3 thou/uL (1.6-8.1); PLATELET ESTIMATE ADEQUATE
[2021-01-20 10:07] LABS: MACROCYTES Occasional
[2021-01-20 10:08] LABS: ANISOCYTOSIS Occasional; POIKILOCYTOSIS 1+
== END 2021-01-20 14:00 | disposition home health service (06) | DRG 177 ==
LOC: M.ERS 18:53 → M.2W 20:55 → M.TBA-ER 20:55 → M.2W 20:55
PROVIDERS: Emergency Medicine; Internal Medicine; Internal Medicine Critical Care Medicine; ADMIT Internal Medicine; ATTEND Internal Medicine
DX: U07.1 COVID-19 (principal); J12.82 Pneumonia due to coronavirus disease 2019; L03.115 Cellulitis of right lower limb; L03.116 Cellulitis of left lower limb; R60.9 Edema, unspecified; M06.9 Rheumatoid arthritis, unspecified; I25.10 Atherosclerotic heart disease of native coronary artery without angina pectoris; E66.9 Obesity, unspecified; I10 Essential (primary) hypertension; I87.2 Venous insufficiency (chronic) (peripheral); Z90.49 Acquired absence of other specified parts of digestive tract; Z68.39 Body mass index [BMI] 39.0-39.9, adult; Z85.89 Personal history of malignant neoplasm of other organs and systems; Z91.19 Patient's noncompliance with other medical treatment and regimen; Z79.82 Long term (current) use of aspirin; Z79.899 Other long term (current) drug therapy; Z87.891 Personal history of nicotine dependence

== ENCOUNTER 2021-03-07 10:36 | Inpatient (IN) | payer OTHER ==
[~2021-03-07] VITALS: Ht 170.2 cm; Wt 127.0 kg
--- NOTE | ~2021-03-07 | PROC ---
[address] [address] PROCEDURE REPORT Name: BROWN DEL TORO JR Room: [address] IN M.R.#: [id number] Admission: 03/07/21 Attend Phys: Maryuri Christian MD Discharge: 03/11/21 Date of : 51 Report #: [id number] THIS REPORT FOR: cc: Matthew Lomeli Adam J DO [facility],Medical Records Staff ~ For GI report, please see the Provation report in [employer] [facility] content. By: 1436Medical Records Staff MICHAEL /ALFREDA
[~2021-03-07 10:36] MED LIST changes: +AMOXIL 875 MG875 M1 PO
[2021-03-07 10:46] VITALS: BP 143/88
[2021-03-07] MEDS ORDERED: FLOMAX0.4 MG PO (10:53)
[2021-03-07] MEDS ORDERED: FUROSEMIDE 40 M40 MG PO (10:53)
[2021-03-07] MEDS ORDERED: MEDROL4 M1 PO (10:54)
[2021-03-07] MEDS ORDERED: VIBRAMYCIN 100100 MG PO (10:54)
[2021-03-07] MEDS ORDERED: VITAMIN C500 M2 PO (10:55)
[2021-03-07 11:21] LABS: ABSOLUTE BASOPHILS 0.1 thou/uL (0.0-0.2); ABSOLUTE EOSINOPHILS 0.3 thou/uL (0.0-0.7); ABSOLUTE LYMPHOCYTES 3.1 thou/uL (0.8-5.3); ABSOLUTE NEUTROPHILS 8.5 thou/uL (1.6-8.1); BASOPHILS 0.7 %; EOSINOPHILS 2.4 %; HEMATOCRIT 35.9 % (42.0-52.0); HEMOGLOBIN 11.8 gm/dL (14.0-18.0); MCH 34.4 pg (26.0-34.0); MCHC 32.9 g/dL (28.0-37.0); MCV 104.6 fL (80.0-100.0); NUCLEATED RBCS 0 /100WBC; PLATELET COUNT* 369 thou/uL (150-400); POLYS 60.9 %; RBC 3.43 mil/uL (4.50-6.00); RDW-CV 15.8 % (10.5-14.5)
[2021-03-07 11:35] LABS: CALCIUM 8.8 mg/dL (8.5-10.1); CREATININE 1.1 mg/dL (0.6-1.3); POTASSIUM 3.6 mmol/L (3.5-5.1)
[2021-03-07 11:39] LABS: APTT 31.1 Seconds (25.0-31.3); INR 1.3
[2021-03-07 11:40] LABS: ALBUMIN 1.7 g/dL (3.4-5.0); TOTAL BILIRUBIN 0.8 mg/dL (<0.1-1.0); TOTAL PROTEIN 6.1 g/dL (6.4-8.2)
[2021-03-07 14:56] LABS: URINE BILIRUBIN NEGATIVE (Negative); URINE BLOOD NEGATIVE (Negative); URINE CLARITY CLEAR; URINE COLOR YELLOW; URINE GLUCOSE-RANDOM NEGATIVE (Negative); URINE KETONES NEGATIVE (Negative); URINE LEUKOCYTES-REFLEX NEGATIVE (Negative); URINE NITRITE-REFLEX NEGATIVE (Negative); URINE PROTEIN NEGATIVE (Negative); URINE SPECIFIC GRAVITY 1.015 (1.005-1.030); URINE UROBILINOGEN 0.2 E.U./dl (0.2-1.0)
[2021-03-07 18:22] VITALS: BP 113/47
[2021-03-07 20:00] VITALS: BP 99/45
[2021-03-07 23:40] VITALS: BP 104/65
[2021-03-08 03:25] VITALS: BP 105/57
[2021-03-08 06:12] LABS: CREATININE 0.8 mg/dL (0.6-1.3)
[2021-03-08 06:14] LABS: POTASSIUM 4.2 mmol/L (3.5-5.1)
[2021-03-08 08:00] VITALS: BP 97/64
[2021-03-08 09:11] LABS: HEMATOCRIT 35.6 % (42.0-52.0); MCH 33.8 pg (26.0-34.0); RBC 3.27 mil/uL (4.50-6.00); RDW-CV 16.5 % (10.5-14.5); WBC 11.4 thou/uL (4.0-11.0)
[2021-03-08 19:55] VITALS: BP 124/61
[2021-03-08 23:45] VITALS: BP 115/57
[2021-03-09 02:05] LABS: HEPATITIS B SURFACE AG Negative (Negative)
[2021-03-09 04:00] VITALS: BP 110/64
[2021-03-09 05:24] LABS: HEMOGLOBIN 9.9 gm/dL (14.0-18.0); MPV 8.2 fl. (7.2-11.1); RBC 2.91 mil/uL (4.50-6.00); RDW-CV 15.7 % (10.5-14.5); WBC 14.2 thou/uL (4.0-11.0)
[2021-03-09 05:33] LABS: MCV 103.1 fL (80.0-100.0)
[2021-03-09 06:01] LABS: ALBUMIN 1.5 g/dL (3.4-5.0); CREATININE 1.2 mg/dL (0.6-1.3); MAGNESIUM 1.9 mg/dL (1.8-2.4); POTASSIUM 3.3 mmol/L (3.5-5.1); TOTAL BILIRUBIN 0.8 mg/dL (<0.1-1.0); TOTAL PROTEIN 5.3 g/dL (6.4-8.2)
[2021-03-09 08:00] VITALS: BP 102/57
[2021-03-09 12:00] VITALS: BP 102/57
[2021-03-09 20:00] VITALS: BP 108/45
[2021-03-10 00:47] VITALS: BP 96/62
[2021-03-10 04:41] VITALS: BP 114/61
[2021-03-10 04:51] LABS: HEMATOCRIT 29.7 % (42.0-52.0); HEMOGLOBIN 9.9 gm/dL (14.0-18.0); MCH 34.3 pg (26.0-34.0); MCHC 33.4 g/dL (28.0-37.0); MCV 102.7 fL (80.0-100.0); MPV 8.4 fl. (7.2-11.1); RBC 2.89 mil/uL (4.50-6.00); RDW-CV 16.1 % (10.5-14.5); WBC 18.2 thou/uL (4.0-11.0)
[2021-03-10 05:09] LABS: ALBUMIN 1.7 g/dL (3.4-5.0); CALCIUM 7.9 mg/dL (8.5-10.1); CREATININE 1.3 mg/dL (0.6-1.3); MAGNESIUM 1.9 mg/dL (1.8-2.4); TOTAL PROTEIN 5.3 g/dL (6.4-8.2)
[2021-03-10 08:00] VITALS: BP 103/52
--- NOTE | 2021-03-10 10:38 | EKG ---
[place] [address] ELECTROCARDIOGRAM REPORT Name: BROWN DEL TORO JR Room: [address] IN .R.#: [id number] Admission: 03/07/21 Attend Phys: Maryuri Christian, Discharge: Date of : 51 Date of Service: 03/07/21 1217 Report #: [id number] THIS REPORT FOR: //name// [facility] ED Test Date: 2021-03-07 Test Time: 12:17:50 Pat Name: BROWN DEL TORO Department: Room: [facility] Gender: M Office Rep: ANITA : 1955 Requested By: Berenice Brunner Order Number: [id number] MD: Karthik Meng Measurements Intervals [place] Rate: 84 P: 38 TX: 203 QRS: 42 QRSD: 102 T: 5 QT: 457 QTc: 541 Interpretive Statements Sinus rhythm Prolonged QT interval Compared to ECG 01/04/2021 14:18:10 No significant changes Electronically Signed On 03-10-2021 10:38:32 CDT by Karthik Meng [email or web address] <ELECTRONICALLY SIGNED> By: Karthik Meng MD, FACC 03/10/21 1038 1217 1217 Karthik Meng MD, [facility] /EPI
[2021-03-10 17:06] VITALS: BP 105/51
[2021-03-10 20:30] VITALS: BP 115/56
[2021-03-11 00:41] VITALS: BP 105/48
[2021-03-11 04:06] VITALS: BP 121/70
[2021-03-11 05:14] LABS: HEMATOCRIT 29.4 % (42.0-52.0); HEMOGLOBIN 9.7 gm/dL (14.0-18.0); MCH 34.3 pg (26.0-34.0); MCV 104.1 fL (80.0-100.0); MPV 7.4 fl. (7.2-11.1); RBC 2.82 mil/uL (4.50-6.00); RDW-CV 16.5 % (10.5-14.5); WBC 15.4 thou/uL (4.0-11.0)
[2021-03-11 06:02] LABS: CREATININE 1.2 mg/dL (0.6-1.3); POTASSIUM 3.6 mmol/L (3.5-5.1)
[2021-03-11 08:00] VITALS: BP 97/55
[2021-03-11] MEDS ORDERED: SPIRONOLACTONE25 MG PO (09:36)
[2021-03-11] MEDS ORDERED: PROTONIX40 M2 PO (09:36)
[2021-03-11] MEDS ORDERED: REGLAN 5 MG TAB5 MG PO (09:37)
[2021-03-11 10:36] VITALS: BP 121/70
[2021-03-11 13:18] VITALS: BP 121/70
[2021-03-11 13:43] VITALS: BP 121/70
[2021-03-11 19:07] LABS: ANA INTERPRETATION Negative (())
--- NOTE | 2021-03-12 16:06 | PATH ---
[address] [address] PATHOLOGY RPT PROCEDURE Name: BROWN DEL TORO JR Room: [address] IN M.R.#: [id number] Admission: 03/07/21 Date of : 51 Discharge: 03/11/21 Report #: [id number] Path Case #: [id number] [facility] Accession Number: [id number] . 01 Material submitted: . stomach - GASTRIC EROSION. Modifiers: GASTRIC . 01 Clinical history: . RULE OUT H-PYLORI EGD IN OR GASTRIC EROSION . 02 Diagnosis: Gastric erosion: - Mild chronic and active gastritis suggesting reactive gastropathy (chemical gastritis), negative for Helicobacter pylori organisms, granulomas, and dysplasia. (JUVENTINO:shelley; 03/12/2021) . . Special stain: H. pylori immuno QMS 03/12/2021 1242 Local . 02 Electronically signed: . Padilla Ramirez MD, Pathologist NPI- [id number] . 01 Gross description: . Received in formalin labeled "Victor HugoBrown and gastric erosion". Received are 2 sequeira-jimenez soft tissue fragments ranging from 0.3-0.4 cm. Specimen is entirely submitted in cassette A1. (J; 03/11/2021) J/J 03/12/2021 1240 Local . 02 Pathologist provided ICD-10: K29.50 . 02 CPT . 105381, [id number] Specimen Comment: A courtesy copy of this report has been sent to [phone] Specimen Comment: [phone], Specimen Comment: Report sent to ,DR CAMILO / DR GANDARA Performed at: [address] [id number] MD Adriel Patricia MD Phone: [phone] Performed at: [address] [address] PATHOLOGY RPT PROCEDURE Name: BROWN DEL TORO JR Room: [address] IN [facility].#: [id number] Admission: 03/07/21 Date of : 51 Discharge: 03/11/21 Report #: [id number] Path Case #: [id number] [address] [place] [address] [id number] MD Padilla Ramirez MD Phone: [phone]
[2021-03-13 09:59] LABS: CERULOPLASMIN 22.2 mg/dL (16.0-31.0)
--- NOTE | 2021-03-13 11:08 | CON ---
[address] [address] CONSULTATION Name: BROWN DEL TORO JR Room: [address]#: [id number] Admission: 03/07/21 Attend Phys: Maryuri Christian MD Discharge: 03/11/21 Date of : 51 Report #: [id number] THIS REPORT FOR: cc: Matthew Lomeli Adam J DO Namin, Farid M. MD ~ DOC #: [id number] cc: MD Milly Don MD DATE OF CONSULTATION: 03/08/2021 REASON FOR CONSULTATION: Rectal bleeding. HISTORY OF PRESENT ILLNESS: This is a 66-year-old male with lower extremity cellulitis, who has had COVID recently, which postponed his colonoscopy. The patient was evaluated in [place] for lower GI bleed and was recommended to have a colonoscopy. The patient denies any nausea, vomiting, hematemesis and melena. His rectal bleeding is bright red blood. He has never had a colonoscopy in the past. The patient also has evidence of cirrhotic liver per CAT scan obtained through emergency room. PAST MEDICAL HISTORY: Significant for recent diagnosis of COVID, hypertension, anemia, GI bleed, hyperlipidemia, chronic use of antiplatelet agent, history of cellulitis. PAST SURGICAL HISTORY: Hernia repair, appendectomy, splenectomy, and tonsillectomy. MEDICATIONS: Please refer to MAR. SOCIAL HISTORY: The patient has history of tobaccoism, but has not smoked for a while. He denies alcohol use. FAMILY HISTORY: Noncontributory. PHYSICAL EXAMINATION: VITAL SIGNS: Reveals blood pressure of 124/61, respirations 18, pulse 104, temperature 36.7. LUNGS: Clear. HEART: Regular. ABDOMEN: Soft, nontender, nondistended. NEUROLOGIC: The [place] [address] CONSULTATION Name: BROWN DEL TORO JR Room: [address]#: [id number] Admission: 03/07/21 Attend Phys: Maryuri Christian MD Discharge: 03/11/21 Date of : 51 Report #: [id number] LABORATORY DATA: Revealed WBC of 14.2, hemoglobin 11.8, platelet count is 341. IMAGING: As discussed above. ASSESSMENT AND PLAN: We will prep the patient and perform a colonoscopy tomorrow. We will make further recommendation based on findings. Meanwhile, we will monitor his hemoglobin and transfuse if he drops below hemoglobin of 7. Milly Richardson MD [facility] [place] <ELECTRONICALLY SIGNED> By: Milly Richardson MD 03/13/21 1108 0721 1002Farangi Richardson MD /nt
== END 2021-03-11 14:12 | disposition home or self-care (01) | DRG 377 ==
LOC: M.ERS 10:36 → M.2W 15:22 → M.ORTHSURG 15:22 → M.TBA-ER 15:22 → M.2W 18:40 → M.ORTHSURG 03-10 15:27
PROVIDERS: Nurse Practitioner Adult Health; Physician Assistant; ADMIT Internal Medicine; ATTEND Internal Medicine
PROC: 0DB98ZX Excision of Duodenum, Via Natural or Artificial Opening Endoscopic, Diagnostic (ICD-10-PCS; principal; 2021-03-10)
PROC: 0DB68ZX Excision of Stomach, Via Natural or Artificial Opening Endoscopic, Diagnostic (ICD-10-PCS; principal; 2021-03-10)
DX: K29.01 Acute gastritis with bleeding (principal); E43 Unspecified severe protein-calorie malnutrition; U07.1 COVID-19; D62 Acute posthemorrhagic anemia; Z68.41 Body mass index [BMI] 40.0-44.9, adult; R65.10 Systemic inflammatory response syndrome (SIRS) of non-infectious origin without acute organ dysfunction; M06.9 Rheumatoid arthritis, unspecified; D63.8 Anemia in other chronic diseases classified elsewhere; D72.829 Elevated white blood cell count, unspecified; K74.60 Unspecified cirrhosis of liver; I87.8 Other specified disorders of veins; K21.00 Gastro-esophageal reflux disease with esophagitis, without bleeding; K44.9 Diaphragmatic hernia without obstruction or gangrene; K31.9 Disease of stomach and duodenum, unspecified; E66.01 Morbid (severe) obesity due to excess calories; Z90.49 Acquired absence of other specified parts of digestive tract; Z79.01 Long term (current) use of anticoagulants; Z79.82 Long term (current) use of aspirin; Z79.899 Other long term (current) drug therapy; Z87.891 Personal history of nicotine dependence